=== PATIENT | female | born 1955 | race Caucasian/White ===

== ENCOUNTER 2020-06-03 18:51 | Inpatient (IN) | payer MEDICARE ==
[2020-06-03] MEDS ORDERED: Acetaminophen/Codeine 30-300mg Tablet PO PRN (20:05)
[2020-06-03] MEDS ORDERED: Dextrose 50% Abboject 50 ML SYRINGE IVP PRN (20:15)
[2020-06-03] MEDS ORDERED: Dextrose 5% in Water 1,000 ML IV PRN (20:15)
[2020-06-03] MEDS ORDERED: HumaLOG 300 UNITS/3 ML VIAL SC PRN ×2 (20:15)
[2020-06-03] MEDS: Atorvastatin Calcium 40 MG TAB PO SCH (20:52)
[2020-06-03] MEDS: metFORMIN 500 MG TAB PO SCH (20:52)
[2020-06-03] MEDS: Carvedilol 6.25 MG TAB PO SCH (20:52)
[2020-06-03] MEDS: Pregabalin 75 MG CAP PO SCH (20:53)
[2020-06-03 21:20] VITALS: BMI 43.4
[2020-06-04] MEDS: Levothyroxine 150 MCG TAB PO SCH (05:11)
[2020-06-04 06:00] LABS: Anion Gap 14 mmol/L (10-20); BUN (Urea Nitrogen) 28 mg/dL (9.8-20.1); Calc. Creatinine Clearance 53 mL/min (70-130); Calcium 8.1 mg/dL (7.8-10.44); Carbon Dioxide 33 mmol/L (23-31); Chloride 95 mmol/L (98-107); Glucose 102 mg/dL (80-115); Sodium 137 mmol/L (136-145)
[2020-06-04 06:04] LABS: #Basophils 0.1 thou/uL (0.0-0.2); #Eosinphils 0.1 thou/uL (0.0-0.7); #Lymphocytes 1.4 thou/uL (1.20-3.40); #Monocytes 0.5 thou/uL (0.11-0.59); #Neutrophils 2.4 thou/uL (1.40-6.50); %Basophils 1.8 % (0.0-1.0); %Eosinophils 2.6 % (0.0-10.0); %Lymphocytes 31.3 % (21.0-51.0); %Monocytes 11.1 % (0.0-10.0); %Neutrophils 53.2 % (42.0-75.0); Anisocytosis SLIGHT = 6-15 cells (100X) (0-5/hpf); Hemoglobin 8.4 g/dL (12.0-16.0); MDiff Complete? YES; Mean Corpuscular HGB CONC 32.8 g/dL (32.0-36.0); Mean Corpuscular Hemoglobin 30.4 pg (27.0-31.0); Mean Corpuscular Volume 92.9 fL (78.0-98.0); Mean Platelet Volume 6.3 fL (7.4-10.4); Platelet Count 112 thou/uL (130-400); Platelet Morphology Comment Appears Decreased; Red Blood Cell (RBC) Count 2.77 mill/uL (4.20-5.40); White Blood Cell (WBC) Count 4.5 thou/uL (4.8-10.8)
[2020-06-04] MEDS: Potassium Chloride 10 MEQ TAB PO SCH (08:48)
[2020-06-04] MEDS: Pregabalin 75 MG CAP PO SCH ×3 (08:49→20:49)
[2020-06-04] MEDS: Tamsulosin HCl 0.4 MG CAP PO SCH (08:49)
[2020-06-04] MEDS: Clopidogrel Bisulfate 75 MG TAB PO SCH (08:51)
[2020-06-04] MEDS: metFORMIN 500 MG TAB PO SCH ×2 (08:51→20:43)
[2020-06-04] MEDS: Carvedilol 6.25 MG TAB PO SCH ×2 (12:59→20:43)
[2020-06-04] MEDS: Spironolactone 25 MG TAB PO SCH ×2 (12:59→17:41)
[2020-06-04] MEDS: Furosemide 40 MG TAB PO SCH ×2 (12:59→15:04)
[2020-06-04] MEDS: Atorvastatin Calcium 40 MG TAB PO SCH (20:43)
[2020-06-05] MEDS: Levothyroxine 150 MCG TAB PO SCH (05:15)
[2020-06-05] MEDS ORDERED: Bisacodyl 5 MG TAB PO PRN (08:17)
[2020-06-05] MEDS ORDERED: Ondansetron ODT 4 MG TAB PO PRN (08:17)
[2020-06-05] MEDS ORDERED: Loperamide HCl 2 MG CAP PO PRN (08:17)
[2020-06-05] MEDS ORDERED: Senokot S 8.6-50 MG TAB PO PRN (08:17)
[2020-06-05] MEDS: Carvedilol 6.25 MG TAB PO SCH ×2 (08:38→21:57)
[2020-06-05] MEDS: Pregabalin 75 MG CAP PO SCH ×3 (08:39→21:57)
[2020-06-05] MEDS: Spironolactone 25 MG TAB PO SCH ×2 (08:39→17:28)
[2020-06-05] MEDS: Clopidogrel Bisulfate 75 MG TAB PO SCH (08:41)
[2020-06-05] MEDS: Tamsulosin HCl 0.4 MG CAP PO SCH (08:41)
[2020-06-05] MEDS: Potassium Chloride 10 MEQ TAB PO SCH (08:41)
[2020-06-05] MEDS: Furosemide 40 MG TAB PO SCH ×2 (08:41→14:47)
[2020-06-05] MEDS: metFORMIN 500 MG TAB PO SCH ×2 (08:42→21:57)
[2020-06-05] MEDS: Enoxaparin Sodium 40 MG/0.4 ML SYRINGE SC SCH (08:45)
[2020-06-05] MEDS: Famotidine 20 MG TAB PO SCH ×2 (08:45→21:57)
--- NOTE | 2020-06-05 08:54 | HP ---
HISTORY OF PRESENT ILLNESS: The patient is an ill-appearing 64-year-old female, who originally presented to [facility] for increasing abdominal swelling, discomfort, and shortness of breath. She has been hospitalized multiple times for this as well. At that visit, she had an altered mental status from the UTI. She was treated for that from the previous visits. For the visit to [facility] is she had generalized edema. In the emergency room, she underwent a CT of abdomen and pelvis, which showed a cirrhotic liver and a large spleen and a left pleural effusion. The patient was started on 80 mg of Lasix IV daily, and she diuresed greater than a liter daily up to 3 L a day. The patient's edema improved; however, she continues to have an ascitic belly, which was swollen in the previous hospital stay. Dr. Anne was consulted with GI at the previous visit. It is recommended continuing diuretics with furosemide and spironolactone, to start a salt restricted diet and if her kidney function worsens, then we might have to back off the diuretics again. Supportive care from a GI standpoint. The patient continued to be weak and required PT and OT Services as well as intermediate care, and she was transferred here to [facility] for these services. The patient, overall, on presentation here, is weak, but still oriented. The patient was in no acute distress; however, her blood pressure was low and we held the Lasix due to her blood pressure being below 100 systolic. PT and OT were consulted, and they will continue to follow the patient as well. PAST MEDICAL HISTORY: 1. Heart failure, preserved ejection fraction. 2. Hypothyroidism. 3. Cirrhosis. 4. Type 2 diabetes. 5. CAD. 6. Hyperlipidemia. PAST SURGICAL HISTORY: 1. Rotator cuff repair. 2. Bilateral total knee arthroplasty. 3. Hysterectomy. 4. Cholecystectomy. 5. EGD in March of 2019, which showed no evidence of varices. 6. Stenting. HOME MEDICATIONS: 1. Metformin 1000 p.o. b.i.d. 2. Tamsulosin 0.4 mg p.o. daily. 3. Spironolactone 25 mg p.o. b.i.d. with meals. 4. Pregabalin 150 mg p.o. t.i.d. 5. Potassium chloride 10 mEq p.o. daily. 6. Levothyroxine 150 mcg p.o. daily. 7. Lasix 40 mg p.o. daily. 8. Plavix 75 mg p.o. daily. 9. Coreg 6.25 p.o. b.i.d. 10. Atorvastatin 80 mg p.o. at bedtime. 11. Tylenol No. 3 one tab p.o. q.8 p.r.n. FAMILY HISTORY: Mother from liver cancer at age 69 and father at age 54, but the cause was not known. SOCIAL HISTORY: Former smoker, who smoked for about 4 years, but does not smoke any more. Denies alcohol use on a regular basis, and denies any illicit drug use. PHYSICAL EXAMINATION: GENERAL: Ill-appearing, weak female lying in bed, in no acute distress. She does have some abdominal distention seen. HEART: Regular in rate and rhythm. No murmurs, gallops, or rubs. LUNGS: Clear to auscultation bilaterally. No wheezes or rhonchi. No respiratory distress. GI: Soft, nontender to palpation, but distended. EXTREMITIES: Generalized weakness. NEUROLOGIC: A&Ox3, but fatigued. PSYCHIATRIC: Cooperative. LABORATORY DATA: On admission, white count 4.5, hemoglobin 8.4, hematocrit 25.7, platelets 112. Sodium 137, potassium 5.0, chloride 95, CO2 33, BUN 28, creatinine 2.10, GFR 24, glucose 98 to 151. ASSESSMENT: 1. Anasarca, most likely secondary to cirrhosis. 2. Heart failure, preserved ejection fraction. 3. Hypothyroidism. 4. Coronary artery disease, status post stents. 5. Stage 3B chronic kidney disease. 6. Type 2 diabetes. 7. Hyperlipidemia. 8. Weakness secondary to above. 9. Confusion, but stable PLAN: 1. Consult PT and OT for strength and conditioning. 2. Continue to monitor BUN and creatinine. If it continues to rise, we will need to decrease the patient's Lasix; however, we have to balance this with proper diuresis, so she cannot get fluid overloaded. Continue spironolactone and monitor blood pressure. Hold if systolic less than 100. 3. Fluid restriction. 4. Diabetic diet. CBG's q.a.c. and q.h.s. with a mild sliding scale. 5. Low-sodium diet. 6. DVT prophylaxis. 7. Stress ulcer prophylaxis. Continue to monitor the patient. 8. Will need to order ammonia level. Job ID: [id number] [id number]
[2020-06-05] MEDS: Atorvastatin Calcium 40 MG TAB PO SCH (21:57)
[2020-06-05 22:16] LABS: #Eosinphils 0.1 thou/uL (0.0-0.7); #Lymphocytes 1.5 thou/uL (1.20-3.40); #Monocytes 0.6 thou/uL (0.11-0.59); #Neutrophils 3.2 thou/uL (1.40-6.50); %Basophils 0.9 % (0.0-1.0); %Eosinophils 1.5 % (0.0-10.0); %Lymphocytes 28.2 % (21.0-51.0); %Monocytes 10.5 % (0.0-10.0); Hemoglobin 8.6 g/dL (12.0-16.0); Mean Corpuscular HGB CONC 32.9 g/dL (32.0-36.0); Mean Corpuscular Hemoglobin 30.5 pg (27.0-31.0); Mean Corpuscular Volume 92.8 fL (78.0-98.0); Mean Platelet Volume 6.4 fL (7.4-10.4); Platelet Count 118 thou/uL (130-400); RBC Distribution Width 15.4 % (11.5-14.5); Red Blood Cell (RBC) Count 2.81 mill/uL (4.20-5.40); White Blood Cell (WBC) Count 5.5 thou/uL (4.8-10.8)
[2020-06-05 22:24] LABS: ALT (SGPT) 15 U/L (8-55); AST (SGOT) 38 U/L (5-34); Albumin 2.4 g/dL (3.4-4.8); Alkaline Phosphatase 111 U/L (40-110); Anion Gap 16 mmol/L (10-20); BUN (Urea Nitrogen) 35 mg/dL (9.8-20.1); Bilirubin, Total 0.8 mg/dL (0.2-1.2); Calc. Creatinine Clearance 40 mL/min (70-130); Calcium 7.9 mg/dL (7.8-10.44); Carbon Dioxide 32 mmol/L (23-31); Chloride 95 mmol/L (98-107); Globulin 4.5 g/dL (2.4-3.5); Glucose 116 mg/dL (80-115); Potassium 5.1 mmol/L (3.5-5.1); Protein, Total 6.9 g/dL (5.8-8.1); Sodium 138 mmol/L (136-145)
[2020-06-06] MEDS: Levothyroxine 150 MCG TAB PO SCH (05:12)
[2020-06-06 08:30] VITALS: BP 147/69; TEMP 97.1
[2020-06-06] MEDS: Spironolactone 25 MG TAB PO SCH (08:55)
[2020-06-06] MEDS: Clopidogrel Bisulfate 75 MG TAB PO SCH (08:56)
[2020-06-06] MEDS: metFORMIN 500 MG TAB PO SCH (08:57)
[2020-06-06] MEDS: Tamsulosin HCl 0.4 MG CAP PO SCH (08:57)
[2020-06-06] MEDS: Potassium Chloride 10 MEQ TAB PO SCH (08:57)
[2020-06-06] MEDS: Furosemide 40 MG TAB PO SCH (08:57)
[2020-06-06] MEDS: Famotidine 20 MG TAB PO SCH (08:57)
[2020-06-06] MEDS: Carvedilol 6.25 MG TAB PO SCH (08:58)
[2020-06-06] MEDS: Enoxaparin Sodium 40 MG/0.4 ML SYRINGE SC SCH (08:59)
--- NOTE | 2020-06-06 09:14 | PRG ---
DATE OF SERVICE: 06/06/2020 The patient has been becoming more confused over the past couple days and is thought to be due to her cirrhosis. An ammonia level was taken which resulted at 166, carbon dioxide was also high at 32. Her BUN and creatinine are elevated as well at 35 BUN with a creatinine of 2.76. CBCs have been okay. White count unremarkable. Overall, the patient was lethargic. Last night, the patient would not respond to sternal rub, but vitals were stable. Patient's O2 sats have been greater than 92% per hospital stay, except for one reading of 91% when she was admitted, otherwise in the high 90s. Patient's blood pressure has remained low as well, which is prohibiting us from using Lasix to help with patient's anasarca. Patient was started on lactulose for her high ammonia, but continues to be altered and lethargic, therefore, the patient will need to be transferred to a higher level of care due to the fact that we do not have respiratory support by Respiratory Therapy here at [facility] nor do we have acute Cardiology services as well. Transfer was discussed with Dr. Snow in [facility] ED and she will be transferred there for further evaluation. Job ID: [id number]
== END 2020-06-06 09:20 | disposition short-term general hospital (02) | DRG 433 ==
LOC: NAV ACUTE 18:51
PROVIDERS: ADMIT Internal Medicine; ATTEND Internal Medicine
DX: K74.60 Unspecified cirrhosis of liver (principal); I50.32 Chronic diastolic (congestive) heart failure; E03.9 Hypothyroidism, unspecified; Z96.653 Presence of artificial knee joint, bilateral; I25.10 Atherosclerotic heart disease of native coronary artery without angina pectoris; E78.5 Hyperlipidemia, unspecified; Z90.49 Acquired absence of other specified parts of digestive tract; Z90.710 Acquired absence of both cervix and uterus; Z98.890 Other specified postprocedural states; Z79.890 Hormone replacement therapy; Z79.01 Long term (current) use of anticoagulants; Z79.84 Long term (current) use of oral hypoglycemic drugs; Z87.891 Personal history of nicotine dependence; Z80.8 Family history of malignant neoplasm of other organs or systems; Z95.5 Presence of coronary angioplasty implant and graft; N18.30 Chronic kidney disease, stage 3 unspecified; E11.22 Type 2 diabetes mellitus with diabetic chronic kidney disease
CPT/HCPCS: 36416; 80048; 80053; 82140; 85025; J1650

== ENCOUNTER 2020-06-09 18:29 | Inpatient (IN) | payer MEDICARE ==
[2020-06-09 18:47] VITALS: BMI 39.4
[2020-06-09] MEDS ORDERED: Dextrose 50% Abboject 50 ML SYRINGE SLOW IVP PRN (21:42)
[2020-06-09] MEDS ORDERED: Dextrose 5% in Water 1,000 ML IV PRN (21:45)
[2020-06-09] MEDS ORDERED: HumaLOG 300 UNITS/3 ML VIAL SC PRN ×2 (21:45)
[2020-06-10 05:32] LABS: #Eosinphils 0.1 thou/uL (0.0-0.7); #Lymphocytes 1.1 thou/uL (1.20-3.40); #Monocytes 0.6 thou/uL (0.11-0.59); #Neutrophils 2.6 thou/uL (1.40-6.50); %Basophils 1.1 % (0.0-1.0); %Eosinophils 1.9 % (0.0-10.0); %Lymphocytes 24.8 % (21.0-51.0); %Monocytes 12.6 % (0.0-10.0); %Neutrophils 59.6 % (42.0-75.0); Anion Gap 14 mmol/L (10-20); BUN (Urea Nitrogen) 24 mg/dL (9.8-20.1); Calc. Creatinine Clearance 52 mL/min (70-130); Calcium 7.7 mg/dL (7.8-10.44); Carbon Dioxide 25 mmol/L (23-31); Chloride 104 mmol/L (98-107); Glucose 427 mg/dL (80-115); Hemoglobin 7.8 g/dL (12.0-16.0); Hypochromia SLIGHT = 6-15 cells (100X) (0-5/hpf); MDiff Complete? YES; Mean Corpuscular Hemoglobin 31.1 pg (27.0-31.0); Mean Corpuscular Volume 94.4 fL (78.0-98.0); Mean Platelet Volume 6.9 fL (7.4-10.4); Platelet Count 71 thou/uL (130-400); Platelet Morphology Comment Appears Decreased; Potassium 3.9 mmol/L (3.5-5.1); RBC Distribution Width 15.7 % (11.5-14.5); Red Blood Cell (RBC) Count 2.52 mill/uL (4.20-5.40); Sodium 139 mmol/L (136-145); White Blood Cell (WBC) Count 4.4 thou/uL (4.8-10.8)
[2020-06-10] MEDS: Levothyroxine 150 MCG TAB PO SCH (05:36)
[2020-06-10] MEDS: Famotidine 20 MG TAB PO SCH (08:09)
[2020-06-10] MEDS: Tamsulosin HCl 0.4 MG CAP PO SCH (08:09)
[2020-06-10] MEDS: Carvedilol 6.25 MG TAB PO SCH ×2 (08:09→16:09)
[2020-06-10] MEDS: Clopidogrel Bisulfate 75 MG TAB PO SCH (08:09)
[2020-06-10] MEDS ORDERED: Pregabalin 75 MG CAP PO SCH (09:00)
[2020-06-10] MEDS ORDERED: Lantus 1000 UNITS/10 ML VIAL SC SCH (09:00)
[2020-06-10] MEDS ORDERED: HumaLOG 300 UNITS/3 ML VIAL SC SCH ×3 (12:45→20:45)
--- NOTE | 2020-06-10 14:06 | HP ---
PRINCIPAL DIAGNOSIS: Cirrhosis and deconditioning for therapy. BRIEF HISTORY: This is a 64-year-old female, who apparently was diagnosed with cirrhosis in March of 2019, was transferred here for therapy on the or 05 of June. She was noted to have altered mental status and shortness of breath and so was sent back to the acute care facility for further evaluation and management. She had an ammonia level of 166. She was encephalopathic. She was admitted to the hospital and treated with lactulose. She was seen by Gastroenterology, who felt that other than lactulose and diuretic therapy once her renal functions returned to baseline, they do not have anything more to offer. She was seen by Nephrology due to acute renal failure and her diuretics were discontinued and her renal functions have been improving; on admission it was 2.94 and it is down to 2.09. She was taken off her metformin and started on Lantus and she was felt to be stable enough to resume rehab and transferred here. This morning, patient is slightly somnolent and she apparently choked while eating food. She was being fed by her daughter. I advised her daughter to have her be sitting upright or at least at 60 degrees or higher and to have small bites and alternate solids with liquids. I have also advised nursing to change her diet to a mechanically soft diet with chopped meats and extra gravy. Her ammonia level was 74 and apparently daughter states that mom has not had a bowel movement for the last two days. So, I did increase her lactulose to t.i.d. today with another one dose soon. We will recheck her labs tomorrow. She also apparently has not urinated since her Johns catheter was removed prior to transfer here and I advised nursing to do a bladder scan and her urine volume is 839. I did advise them to do in and out catheterization and order bladder scan q.6 hours and in and out catheterization if postvoid residual is greater than 400 mL. PAST MEDICAL HISTORY: 1. Diastolic congestive heart failure. I do not have an echocardiogram for ejection fraction. 2. Diabetes mellitus type 2. 3. Coronary artery disease. 4. Dyslipidemia. 5. Hypothyroidism. 6. History of urinary retention. PAST SURGICAL HISTORY: 1. Bilateral rotator cuff repair. 2. Bilateral total knee arthroplasty. 3. Hysterectomy. 4. Cholecystectomy. 5. EGD. 6. Coronary artery stent placement. FAMILY HISTORY: Positive for liver cancer in her mom. PSYCHOSOCIAL HISTORY: Former smoker. Denies any alcohol or recreational drug abuse. Apparently has good family support. MEDICATIONS: She has been transferred here on the following medications: 1. Lipitor 80 mg at bedtime. 2. Carvedilol 6.25 mg b.i.d. 3. Plavix 75 mg daily. 4. Drisdol 1.25 mg every weekly. 5. Pepcid 20 mg daily. 6. Lantus 10 units subcu daily. 7. Lactulose 20 g p.o. b.i.d. 8. Synthroid 150 mcg daily. 9. Lyrica 150 mg b.i.d. 10. Tamsulosin 0.4 mg daily. ALLERGIES: PENICILLIN. REVIEW OF SYSTEMS: CARDIOVASCULAR SYSTEM: Denies any chest pain, shortness of breath, palpitations, PND, orthopnea, pedal edema. RESPIRATORY SYSTEM: Denies any chronic cough, expectoration, or pleuritic-type chest pain. GASTROINTESTINAL SYSTEM: Denies any nausea, vomiting, diarrhea. She has not had a bowel movement in two days. Denies any hematemesis, melena, hematochezia. GENITOURINARY SYSTEM: Urinary retention required she just had a Johns removed, but still showing retention. We will do in and out catheterization for a couple of times and if there is no improvement, then we will place a Johns and outpatient followup with Urology. EXTREMITIES: Occasional joint pains. She does have chronic brawny edema to her lower extremities. CENTRAL NERVOUS SYSTEM: Denies any focal numbness, weakness, or fainting spells, but she does have episodes of encephalopathy. I do not see any asterixis at this point. SKIN: Denies any rash, but it is dry. ENT: Denies any changes with speech, vision, hearing. She did apparently choke with food, so we will change to a mechanically soft diet and just to be safe; get a speech therapy evaluation. PHYSICAL EXAMINATION: GENERAL: A 64-year-old female, up in bed. Denies any concerns. Somnolent but arousable. Her daughter is in the room. Responds appropriately to simple questions. VITAL SIGNS: She is afebrile. Heart rate is 90, respirations 20, oxygen saturation 97% on room air, blood pressure 138/65. CARDIOVASCULAR SYSTEM: S1, S2 plus. Rate and rhythm regular. RESPIRATORY SYSTEM: Normal vesicular breath sounds. ABDOMEN: Soft, obese, nontender. Bowel sounds heard in all quadrants. No organomegaly. No palpable masses. No CV angle tenderness. EXTREMITIES: Without cyanosis or clubbing. Trace edema. CENTRAL NERVOUS SYSTEM: Awake and responsive. Cranial nerves II through XII intact. No asterixis. HEENT: Normocephalic, atraumatic. Pupils equally reactive to light and accommodation. No JVD, thyromegaly, cervical adenopathy, or throat exudates. No carotid bruits. LABORATORY DATA: Laboratory values done this morning shows a white count of 4.4, H and H 7.8 and 23.8 with macrocytosis. Sodium 139, potassium 3.9. BUN and creatinine 24 and 2.06. Blood sugars are 345, 347, 367, and 437. Her ammonia level was 74. IMPRESSION: 1. Cirrhosis, unknown etiology. 2. Dyslipidemia. 3. Diabetes mellitus type 2. 4. Hypertension. 5. Hypothyroidism. 6. Urinary retention. PLAN: 1. Continue current medications, but increase lactulose to t.i.d. 2. Bladder scan and in and out catheterization if PVR greater than 400 mL. 3. Mechanically soft diet with extra gravy. 4. Feeding with the head of the bed at least 60 degrees. 5. Speech therapy evaluation just to make sure she is not having any swallowing issues. 6. Monitor stool output. 7. Continue current medications but reduce her Lyrica to 75 mg once daily. 8. Increase Lantus to 10 units b.i.d. 9. PT/OT eval and treat. 10. Recheck BMP in the morning. 11. Discussed with the patient and daughter in detail. All questions answered. 12. Poor long-term prognosis. 13. Estimated length of stay 7-10 days. Job ID: [id number]
[2020-06-10 18:31] LABS: Bilirubin Negative (Negative); Blood, Urine Moderate (Negative); Glucose, Urine (Dipstick) 500 mg/dL (Negative); Ketone, Urine Trace mg/dL (Negative); Leukocyte Moderate (Negative); Nitrite Negative (Negative); Protein, Urine (Dipstick) 100 mg/dL (Neg-Trace); Urobilinogen 0.2 mg/dL (Less than 2); pH, Urine 5.5 (5.0-9.0)
[2020-06-10 18:32] LABS: Clarity Cloudy (Clear)
[2020-06-10 18:41] LABS: Bacteria/HPF Rare-Few HPF (None Seen); Squamous Epithelial 0-3 HPF (0-3); WBC/HPF Greater Than 50 HPF (0-3); Yeast-Budding 4+ HPF (None Seen)
[2020-06-10 18:42] LABS: Urine Culture Reflex Yes Yes
[2020-06-10] MEDS: Atorvastatin Calcium 40 MG TAB PO SCH (21:19)
[2020-06-10] MEDS: Lantus 1000 UNITS/10 ML VIAL SC SCH (21:20)
[2020-06-11] MEDS: Levothyroxine 150 MCG TAB PO SCH (05:28)
[2020-06-11 05:34] LABS: Anion Gap 14 mmol/L (10-20); BUN (Urea Nitrogen) 28 mg/dL (9.8-20.1); Calc. Creatinine Clearance 46 mL/min (70-130); Chloride 104 mmol/L (98-107); Glucose 419 mg/dL (80-115); Potassium 4.1 mmol/L (3.5-5.1); Sodium 138 mmol/L (136-145)
[2020-06-11 05:36] LABS: Carbon Dioxide 24 mmol/L (23-31)
[2020-06-11] MEDS ORDERED: HumaLOG 300 UNITS/3 ML VIAL SC SCH (06:15)
[2020-06-11] MEDS: Clopidogrel Bisulfate 75 MG TAB PO SCH (08:03)
[2020-06-11] MEDS: Famotidine 20 MG TAB PO SCH (08:03)
[2020-06-11] MEDS: Tamsulosin HCl 0.4 MG CAP PO SCH (08:04)
[2020-06-11] MEDS: Pregabalin 75 MG CAP PO SCH (08:04)
[2020-06-11] MEDS: Carvedilol 6.25 MG TAB PO SCH ×2 (08:04→19:20)
[2020-06-11] MEDS: Lantus 1000 UNITS/10 ML VIAL SC SCH ×2 (08:07→21:28)
[2020-06-11] MEDS: HumaLOG 300 UNITS/3 ML VIAL SC PRN ×3 (13:32→21:40)
[2020-06-11] MEDS: Bisacodyl 10 MG SUPP PR PRN (15:29)
[2020-06-11] MEDS: Atorvastatin Calcium 40 MG TAB PO SCH (21:29)
[2020-06-12] MEDS: HumaLOG 300 UNITS/3 ML VIAL SC PRN ×3 (05:21→17:25)
[2020-06-12] MEDS: Levothyroxine 150 MCG TAB PO SCH (05:21)
[2020-06-12 05:28] LABS: Hemoglobin 7.4 g/dL (12.0-16.0); Mean Corpuscular HGB CONC 32.5 g/dL (32.0-36.0); Mean Corpuscular Volume 95.3 fL (78.0-98.0); Platelet Count 65 thou/uL (130-400); RBC Distribution Width 15.8 % (11.5-14.5); White Blood Cell (WBC) Count 6.9 thou/uL (4.8-10.8)
[2020-06-12 05:29] LABS: #Basophils 0.1 thou/uL (0.0-0.2); #Eosinphils 0.1 thou/uL (0.0-0.7); #Lymphocytes 1.5 thou/uL (1.20-3.40); #Monocytes 0.9 thou/uL (0.11-0.59); #Neutrophils 4.3 thou/uL (1.40-6.50); %Basophils 1.1 % (0.0-1.0); %Lymphocytes 21.4 % (21.0-51.0); %Monocytes 13.3 % (0.0-10.0); %Neutrophils 62.2 % (42.0-75.0); Manual Diff?? NO; Mean Platelet Volume 7.8 fL (7.4-10.4)
[2020-06-12 05:36] LABS: Chloride 103 mmol/L (98-107)
[2020-06-12 05:39] LABS: Anion Gap 12 mmol/L (10-20); BUN (Urea Nitrogen) 33 mg/dL (9.8-20.1); Calc. Creatinine Clearance 45 mL/min (70-130); Calcium 7.9 mg/dL (7.8-10.44); Carbon Dioxide 25 mmol/L (23-31); Glucose 308 mg/dL (80-115); Potassium 4.1 mmol/L (3.5-5.1); Sodium 136 mmol/L (136-145)
[2020-06-12] MEDS: Tamsulosin HCl 0.4 MG CAP PO SCH (08:47)
[2020-06-12] MEDS: Famotidine 20 MG TAB PO SCH (08:47)
[2020-06-12] MEDS: Carvedilol 6.25 MG TAB PO SCH ×2 (08:47→17:24)
[2020-06-12] MEDS: Pregabalin 75 MG CAP PO SCH (08:48)
[2020-06-12] MEDS: Clopidogrel Bisulfate 75 MG TAB PO SCH ×2 (08:48→21:08)
[2020-06-12] MEDS: Lantus 1000 UNITS/10 ML VIAL SC SCH ×2 (08:49→21:09)
--- NOTE | 2020-06-12 10:25 | PRG ---
DATE OF SERVICE: 06/11/2020 SUBJECTIVE: Ms. Garcia is up in bed. She had no further issues with chewing or swallowing food. She is on a mechanically soft diet with extra gravy. She continues to have urinary retention and the plan is to just place a Johns catheter. She also has not had a bowel movement despite increased her lactulose 3 times a day, so plan is to increase it to 4 times a day and also add Dulcolax suppositories. The patient is awake and alert. OBJECTIVE: VITAL SIGNS: She is afebrile. Heart rate 97, respirations are 18, oxygen saturation is 96% on room air, blood pressure 139/65. CARDIOVASCULAR: S1 and S2 plus. RESPIRATORY: Normal vesicular breath sounds. ABDOMEN: Soft, nontender. Bowel sounds heard in all quadrants. EXTREMITIES: Without cyanosis or clubbing. Trace edema. CENTRAL NERVOUS SYSTEM: No asterixis. Generalized weakness, otherwise nonfocal. LABORATORY VALUES: Show a sodium of 138, potassium 4.1, BUN and creatinine are 28 and 2.31. Blood sugars are 419, 456, 452, 437. IMPRESSION: 1. Cirrhosis with resolving hepatic encephalopathy. 2. Diabetes mellitus type 2, not controlled. 3. Acute renal insufficiency. 4. Coronary artery disease. 5. Dyslipidemia. 6. Hypothyroidism. 7. Urinary retention. 8. History of diastolic congestive heart failure. I do not have an echocardiogram result. PLAN: 1. Continue current medications, but increase lactulose to q.i.d. 2. Start Dulcolax suppository b.i.d. 3. Her Lantus has been increased to 10 units b.i.d. and sliding scale changed to moderate, probably need to increase her Lantus to 15 units b.i.d. 4. Encourage p.o. intake. 5. PT/OT. 6. Routine laboratory values and monitor renal function. She is not on any new diuretic therapy. I did reduce her Lyrica to 75 mg once daily from 150 b.i.d. May need to renal functions continue to get worse. Encouraged her to drink fluids as well. 7. Recheck CBC and BMP in the morning. 8. Dr. Diehl on-call this weekend. Job ID: [id number]
[2020-06-12] MEDS: Bisacodyl 10 MG SUPP PR PRN (11:44)
[2020-06-12] MEDS ORDERED: Fleet Enema 133 ML BOT PR PRN (12:48)
[2020-06-12] MEDS: Rifaximin 550 MG TAB PO SCH (21:08)
[2020-06-12] MEDS: Atorvastatin Calcium 40 MG TAB PO SCH (21:08)
[2020-06-13 05:46] LABS: %Eosinophils 2.1 % (0.0-10.0); %Lymphocytes 22.2 % (21.0-51.0); %Neutrophils 59.6 % (42.0-75.0); Hemoglobin 7.5 g/dL (12.0-16.0); Manual Diff?? NO; Mean Corpuscular HGB CONC 33.1 g/dL (32.0-36.0); Mean Corpuscular Hemoglobin 31.3 pg (27.0-31.0); Mean Corpuscular Volume 94.6 fL (78.0-98.0); Mean Platelet Volume 7.9 fL (7.4-10.4); Platelet Count 63 thou/uL (130-400); RBC Distribution Width 15.6 % (11.5-14.5); Red Blood Cell (RBC) Count 2.41 mill/uL (4.20-5.40); White Blood Cell (WBC) Count 6.5 thou/uL (4.8-10.8)
[2020-06-13 05:47] LABS: #Basophils 0.1 thou/uL (0.0-0.2); #Eosinphils 0.1 thou/uL (0.0-0.7); #Lymphocytes 1.5 thou/uL (1.20-3.40); #Neutrophils 3.9 thou/uL (1.40-6.50); %Basophils 1.1 % (0.0-1.0); ALT (SGPT) 14 U/L (8-55); AST (SGOT) 29 U/L (5-34); Albumin 2.8 g/dL (3.4-4.8); Alkaline Phosphatase 117 U/L (40-110); Anion Gap 12 mmol/L (10-20); BUN (Urea Nitrogen) 39 mg/dL (9.8-20.1); Bilirubin, Total 0.6 mg/dL (0.2-1.2); Calc. Creatinine Clearance 45 mL/min (70-130); Calcium 7.9 mg/dL (7.8-10.44); Carbon Dioxide 25 mmol/L (23-31); Chloride 102 mmol/L (98-107); Glucose 184 mg/dL (80-115); Potassium 4.3 mmol/L (3.5-5.1); Protein, Total 6.8 g/dL (5.8-8.1); Sodium 135 mmol/L (136-145)
[2020-06-13] MEDS: Levothyroxine 150 MCG TAB PO SCH (06:12)
[2020-06-13] MEDS: Carvedilol 6.25 MG TAB PO SCH ×2 (08:18→16:54)
[2020-06-13] MEDS: Lantus 1000 UNITS/10 ML VIAL SC SCH ×2 (08:19→20:31)
[2020-06-13] MEDS: Famotidine 20 MG TAB PO SCH (08:19)
[2020-06-13] MEDS: Fluconazole 100 MG TAB PO SCH (08:19)
[2020-06-13] MEDS: Clopidogrel Bisulfate 75 MG TAB PO SCH ×2 (08:19→20:30)
[2020-06-13] MEDS: Pregabalin 75 MG CAP PO SCH (08:20)
[2020-06-13] MEDS: Rifaximin 550 MG TAB PO SCH ×2 (08:21→20:30)
[2020-06-13] MEDS: Tamsulosin HCl 0.4 MG CAP PO SCH (08:21)
[2020-06-13] MEDS: HumaLOG 300 UNITS/3 ML VIAL SC PRN ×2 (16:52→20:36)
[2020-06-13] MEDS: Atorvastatin Calcium 40 MG TAB PO SCH (20:30)
[2020-06-14] MEDS: Carvedilol 6.25 MG TAB PO SCH ×2 (09:23→17:23)
[2020-06-14] MEDS: Famotidine 20 MG TAB PO SCH (09:24)
[2020-06-14] MEDS: Clopidogrel Bisulfate 75 MG TAB PO SCH ×2 (09:24→20:40)
[2020-06-14] MEDS: Fluconazole 100 MG TAB PO SCH (09:25)
[2020-06-14] MEDS: Lantus 1000 UNITS/10 ML VIAL SC SCH ×2 (09:26→20:40)
[2020-06-14] MEDS: Rifaximin 550 MG TAB PO SCH ×2 (09:28→20:40)
[2020-06-14] MEDS: Pregabalin 75 MG CAP PO SCH (09:28)
[2020-06-14] MEDS: Tamsulosin HCl 0.4 MG CAP PO SCH (09:31)
[2020-06-14] MEDS: Atorvastatin Calcium 40 MG TAB PO SCH (20:40)
[2020-06-14] MEDS: HumaLOG 300 UNITS/3 ML VIAL SC PRN (20:40)
[2020-06-15] MEDS: HumaLOG 300 UNITS/3 ML VIAL SC PRN ×4 (05:45→20:45)
[2020-06-15] MEDS: Levothyroxine 150 MCG TAB PO SCH (05:45)
[2020-06-15] MEDS ORDERED: Ergocalciferol 1.25 MG(50,000 UNITS) CAP PO SCH (09:00)
[2020-06-15] MEDS: Famotidine 20 MG TAB PO SCH (09:15)
[2020-06-15] MEDS: Pregabalin 75 MG CAP PO SCH (09:15)
[2020-06-15] MEDS: Rifaximin 550 MG TAB PO SCH ×2 (09:15→20:44)
[2020-06-15] MEDS: Clopidogrel Bisulfate 75 MG TAB PO SCH ×2 (09:15→20:44)
[2020-06-15] MEDS: Tamsulosin HCl 0.4 MG CAP PO SCH (09:16)
[2020-06-15] MEDS: Carvedilol 6.25 MG TAB PO SCH ×2 (09:16→17:33)
[2020-06-15] MEDS: Fluconazole 100 MG TAB PO SCH (09:16)
[2020-06-15] MEDS: Lantus 1000 UNITS/10 ML VIAL SC SCH ×2 (09:16→20:44)
[2020-06-15] MEDS: Atorvastatin Calcium 40 MG TAB PO SCH (20:44)
[2020-06-16] MEDS: Levothyroxine 150 MCG TAB PO SCH ×2 (05:59→06:08)
[2020-06-16] MEDS: HumaLOG 300 UNITS/3 ML VIAL SC PRN ×4 (06:00→21:14)
[2020-06-16] MEDS: Carvedilol 6.25 MG TAB PO SCH ×2 (08:23→17:39)
[2020-06-16] MEDS: Clopidogrel Bisulfate 75 MG TAB PO SCH ×2 (08:24→21:14)
[2020-06-16] MEDS: Famotidine 20 MG TAB PO SCH (08:24)
[2020-06-16] MEDS: Fluconazole 100 MG TAB PO SCH (08:25)
[2020-06-16] MEDS: Lantus 1000 UNITS/10 ML VIAL SC SCH ×2 (08:25→21:14)
[2020-06-16] MEDS: Rifaximin 550 MG TAB PO SCH ×2 (08:26→21:14)
[2020-06-16] MEDS: Pregabalin 75 MG CAP PO SCH (08:26)
[2020-06-16] MEDS: Tamsulosin HCl 0.4 MG CAP PO SCH (08:27)
--- NOTE | 2020-06-16 20:01 | PRG ---
DATE OF SERVICE: 06/12/2020 SUBJECTIVE: Patient of Dr. Matthew Pickett, with end-stage cirrhosis, uncontrolled diabetes, acute on chronic renal failure, and coronary artery disease, who has become more encephalopathic today by lactulose 3 times a day and has not had a bowel movement. Daughter is in the room and is very upset and wishing her to have more bowel movements. OBJECTIVE: VITAL SIGNS: Shows her temperature is 98, pulse 98, blood pressure 136/62, O2 sats is 99%. Accu-Cheks ranged from 212 to 245. Ammonia level is elevated to 128. ABDOMEN: Obese and nontender. SKIN/EXTREMITIES: Show 1+ edema. No clubbing or cyanosis. The patient is lethargic and awakens slowly, but appears to be in no distress. ASSESSMENT: 1. Acute exacerbation of hepatic encephalopathy, on lactulose. 2. Type 2 diabetes, uncontrolled. 3. Chronic kidney disease, stage 4, stable with component of hepatorenal syndrome. PLAN: 1. Discussed with daughter severity of her mother's condition. 2. Increase lactulose 4 times daily. Start rifaximin twice daily. 3. P.o. Fleet's enema now and 3 times daily to ensure bowel movements. Job ID: [id number]
--- NOTE | 2020-06-16 20:10 | PRG ---
DATE OF SERVICE: 06/16/2020 SUBJECTIVE: Patient more awake and alert, appears to be at her baseline status. Eating well with no confusion or nausea. She is asking when she can be discharged home. OBJECTIVE: VITAL SIGNS: Blood pressure is 131/60, temperature is 99, pulse 86, respirations 22, O2 saturation 97% on room air. LUNGS: Clear. CARDIAC: Showed regular rhythm. ABDOMEN: Soft and nontender. SKIN/EXTREMITIES: Showed no edema, clubbing, or cyanosis. LABORATORY DATA: Sodium is 135, potassium 4.3, chloride 102, BUN 39, creatinine 2.36, glucose 184, calcium 7.9, total bilirubin 0.6, AST 29, ALT 14, alkaline phosphatase 117, total protein 6.8, albumin 2.8, globulin 4.0. White count 6500, hematocrit 22, hemoglobin 7.5, platelet count is 63,000. ASSESSMENT: 1. End-stage liver disease with pancytopenia, portal hypertension stable. 2. Hepatic encephalopathy, severe, but improved with high-dose lactulose and rifaximin with ammonia level 69. 3. Chronic kidney disease stage 4 with acute on chronic kidney injury, appears to be stabilizing. 4. Severe deconditioning. PLAN: 1. Dr. Hidalgo to be back tomorrow. Discuss hospice with the patient at the daughter's request and at the family's request. 2. Continue rifaximin and lactulose. 3. Continue Accu-Cheks to monitor and titrate and control diabetes. Job ID: [id number]
--- NOTE | 2020-06-16 20:11 | PRG ---
DATE OF SERVICE: 06/16/2020 SUBJECTIVE: The patient is awake, alert, visiting with her son, asking when she can discharge home. She has been discharged from therapy as she has refused to cooperate. OBJECTIVE: Shows Accu-Cheks 209 to 223. VITAL SIGNS: Show blood pressure is , pulse 80, respirations 20, afebrile. LUNGS: Clear. CARDIAC: Regular rhythm. ABDOMEN: Soft and nontender. ASSESSMENT: 1. End-stage liver disease with hepatic encephalopathy. 2. Portal hypertension. 3. Chronic kidney disease, stage 4. PLAN: [facility] because as soon as she can be discharged home to have hospital bed available. Job ID: [id number]
--- NOTE | 2020-06-16 20:28 | PRG ---
DATE OF SERVICE: 06/15/2020 SUBJECTIVE: The patient lying in bed, much more alert, but unable to do therapy despite improvement in hepatic encephalopathy. Her daughter has discussed with her PCP, Dr. Hidalgo, and has agreed to [facility], and therefore, we will consent to this and [facility] will contact her. OBJECTIVE: GENERAL: Shows the patient is awake and alert, but only wants to go home and not cooperate. She is taking her lactulose and rifaximin, however. VITAL SIGNS: Temperature is 98.7, pulse 83, respirations 16, O2 sats 96% on room air, blood pressure is 118/57. LUNGS: Are clear. CARDIAC EXAMINATION: Shows regular rhythm. ABDOMEN: Soft and nontender. SKIN/EXTREMITIES: Show no edema, clubbing, or cyanosis. NEUROLOGICAL: Shows no focal findings. LABORATORY DATA: Accu-Cheks stable from 189 to 222. Most recent ammonia level was 69. ASSESSMENT: 1. Severe cirrhosis with hepatic encephalopathy, controlled with lactulose and rifaximin. 2. Deconditioning, improved, not working with therapy. 3. Type 2 diabetes, only fair control. 4. Chronic kidney disease superimposed on acute kidney injury, stable, stage 4. PLAN: Consult [facility]. Continue supportive measures. Job ID: [id number]
[2020-06-16] MEDS: Atorvastatin Calcium 40 MG TAB PO SCH (21:14)
[2020-06-17] MEDS: Levothyroxine 150 MCG TAB PO SCH (06:01)
[2020-06-17 07:44] VITALS: BP 140/66; TEMP 98.1
[2020-06-17] MEDS: Lantus 1000 UNITS/10 ML VIAL SC SCH (08:32)
[2020-06-17] MEDS: Clopidogrel Bisulfate 75 MG TAB PO SCH (08:32)
[2020-06-17] MEDS: Fluconazole 100 MG TAB PO SCH (08:32)
[2020-06-17] MEDS: Famotidine 20 MG TAB PO SCH (08:32)
[2020-06-17] MEDS: Carvedilol 6.25 MG TAB PO SCH (08:32)
[2020-06-17] MEDS: Pregabalin 75 MG CAP PO SCH (08:33)
[2020-06-17] MEDS: Tamsulosin HCl 0.4 MG CAP PO SCH (08:34)
[2020-06-17] MEDS: Rifaximin 550 MG TAB PO SCH (08:34)
--- NOTE | 2020-06-17 12:15 | PRG ---
DATE OF SERVICE: 06/17/2020 SUBJECTIVE: The patient is alert, somewhat agitated, wanting to go home, but not confused or lethargic. She is tolerating laxative and is eating well. Family has been contacted by [facility] and is awaiting DME and we will take the patient home. OBJECTIVE: VITAL SIGNS: Shows temperature is 98, pulse 78, respirations 18, O2 sats 96% on room air, and blood pressure is 140/66. LUNGS: Clear. CARDIAC: Shows regular rhythm. ABDOMEN: Soft and nontender, but obese. SKIN/EXTREMITIES: Showed no edema. ASSESSMENT: 1. End-stage liver disease with hepatic encephalopathy, compensated with lactulose and rifaximin. 2. Chronic kidney disease, stage 3, stable. 3. Type 2 diabetes with fair control. 4. Severe deconditioning with refusal of therapy. PLAN: Discharge home with [facility] as soon as inclement weather clears and DME available. Job ID: [id number]
== END 2020-06-17 15:00 | disposition hospice, home (50) | DRG 441 ==
LOC: NAV ACUTE 18:29
PROVIDERS: ADMIT Internal Medicine; ATTEND Internal Medicine
DX: K72.00 Acute and subacute hepatic failure without coma (principal); K76.7 Hepatorenal syndrome; N17.9 Acute kidney failure, unspecified; N18.4 Chronic kidney disease, stage 4 (severe); D61.818 Other pancytopenia; K76.6 Portal hypertension; K74.60 Unspecified cirrhosis of liver; E78.5 Hyperlipidemia, unspecified; I25.10 Atherosclerotic heart disease of native coronary artery without angina pectoris; E03.9 Hypothyroidism, unspecified; R33.9 Retention of urine, unspecified; E11.22 Type 2 diabetes mellitus with diabetic chronic kidney disease; R53.81 Other malaise; I12.9 Hypertensive chronic kidney disease with stage 1 through stage 4 chronic kidney disease, or unspecified chronic kidney disease; Z96.653 Presence of artificial knee joint, bilateral; Z90.710 Acquired absence of both cervix and uterus; Z90.49 Acquired absence of other specified parts of digestive tract; Z95.5 Presence of coronary angioplasty implant and graft; Z87.891 Personal history of nicotine dependence; Z79.02 Long term (current) use of antithrombotics/antiplatelets; Z79.4 Long term (current) use of insulin; Z88.0 Allergy status to penicillin
CPT/HCPCS: 36416; 80048; 80053; 81001; 82140; 85025; 87086; J1815